=== PATIENT | male | born 1970 | race American Indian/Alaskan Native ===

== ENCOUNTER 2016-09-23 23:16 | Emergency (ER) | payer OTHER ==
[2016-09-23 23:29] VITALS: BP 128/82
[2016-09-24 00:05] LABS: Basophils % (Auto) 0.6 % (0.0-1.8); Eosinophils % (Auto) 2.8 % (0.0-4.3); Hematocrit 37.5 % (35.5-45.6); Hemoglobin 12.5 gm/dl (11.8-15.2); Mean Corpuscular HGB Conc 33 % (32-34); Mean Corpuscular Hemoglobin 28 pg (28-32); Mean Corpuscular Volume 85 fl (84-94); Platelet Count 285 K/mm3 (140-440); Red Blood Count 4.39 M/mm3 (3.65-5.03); Red Cell Distribution Width 14.3 % (13.2-15.2); White Blood Count 7.1 K/mm3 (4.5-11.0)
[2016-09-24 00:24] LABS: BUN/Creatinine Ratio 12.85; Blood Urea Nitrogen 18 mg/dL (9-20); Calcium 9.6 mg/dL (8.4-10.2); Carbon Dioxide 26 mmol/L (22-30); Glucose 105 mg/dL (75-100); Potassium 3.8 mmol/L (3.6-5.0); Sodium 141 mmol/L (137-145)
[2016-09-24 00:26] LABS: Anion Gap 18 mmol/L
--- NOTE | 2016-09-24 09:54 | XRay Report ---
ROUTINE CHEST, TWO VIEWS: HISTORY: Shortness of breath. The trachea, heart, mediastinal contour, lung cody and bony thorax are unremarkable. IMPRESSION: Unremarkable chest x-ray.
--- NOTE | 2016-09-27 15:38 | ED Elopement Review ---
ED Pt Elopement review - Results review Lab results: Laboratory Tests 09/23/16 09/23/16 23:50 23:50 WBC 7.1 RBC 4.39 Hgb 12.5 Hct 37.5 MCV 85 MCH 28 MCHC 33 RDW 14.3 Plt Count 285 Lymph % (Auto) 38.5 H [place] % (Auto) 6.4 Eos % (Auto) 2.8 Baso % (Auto) 0.6 Lymph # 2.7 [place] # 0.5 Eos # 0.2 Baso # 0.0 Seg Neutrophils % 51.7 Seg Neutrophils # 3.7 Sodium 141 Potassium 3.8 Chloride 101.0 Carbon Dioxide 26 Anion Gap 18 BUN 18 Creatinine 1.4 Estimated GFR > 60 BUN/Creatinine Ratio 12.85 Glucose 105 H Calcium 9.6 Troponin T < 0.010 - Call Back decision Pt Call Back Decision: No action required
== END 2016-09-24 11:20 | disposition left against medical advice (07) ==
LOC: ED 23:16
DX: R07.9 Chest pain, unspecified (principal); R06.00 Dyspnea, unspecified; Z53.21 Procedure and treatment not carried out due to patient leaving prior to being seen by health care provider
CPT/HCPCS: 36415; 71020; 80048; 84484; 85025; 93005; 93010